=== PATIENT | male | born 1990 | race Two or more races ===

== ENCOUNTER 2023-02-06 07:08 | Emergency (ER) | payer BC ==
[2023-02-06] MEDS ORDERED: Sodium Chloride 0.9% 10 ML Syringe FLUSH PRN (07:26)
[2023-02-06] MEDS ORDERED: Sodium Chloride 0.9% 2.5 ML Syringe FLUSH PRN (07:26)
[2023-02-06] MEDS ORDERED: Ketorolac 30 MG/ML SDV IVPUSH ONE (07:26)
[2023-02-06] MEDS ORDERED: Albuterol/Ipratropium 3.0-0.5 MG/3 ML Neb Soln NEB ONE (07:51)
[2023-02-06 07:54] LABS: BASOPHILS PERCENT AUTO 0.5 % (0.0-1.5); EOSINOPHILS ABSOLUTE AUTO 0.1 K/uL (0.0-0.7); EOSINOPHILS PERCENT AUTO 1.5 % (0.0-7.0); HEMATOCRIT 43.6 % (38.0-50.0); LYMPHOCYTES ABSOLUTE AUTO 1.9 K/uL (0.6-2.4); LYMPHOCYTES PERCENT AUTO 25.5 % (16.0-40.0); MEAN CORPUSCULAR HEMOGLOBIN 29.7 pg (27.0-32.0); MEAN CORPUSCULAR HGB CONC 32.1 g/dL (31.0-37.0); MEAN CORPUSCULAR VOLUME 92.6 fL (80.0-98.0); MONOCYTES ABSOLUTE AUTO 0.8 K/uL (0.0-0.8); MONOCYTES PERCENT AUTO 10.3 % (0.0-15.0); NEUTROPHILS ABSOLUTE AUTO 4.6 K/uL (1.4-5.7); NEUTROPHILS PERCENT AUTO 62.2 % (48.0-80.0); NRBC ABSOLUTE 0 K/uL; PLATELET COUNT,PLT 236 K/uL (150-400); RED BLOOD CELL COUNT 4.71 M/uL (4.50-5.90); WHITE BLOOD CELL COUNT,WBC 7.45 K/uL (4.0-11.0)
[2023-02-06 08:18] LABS: A/G RATIO 0.9 (0.9-1.6); ALANINE AMINOTRANSFERASE,ALT 47 IU/L (14-63); ALBUMIN 3.3 g/dL (3.4-5.0); ALKALINE PHOSPHATASE 102 U/L (46-116); ASPARTATE AMNIOTRANSFERASE,AST 28 IU/L (15-37); BILIRUBIN TOTAL 0.3 mg/dL (0.2-1.0); BLOOD UREA NITROGEN,BUN 18 mg/dL (7.0-18.0); CALCIUM 8.3 mg/dL (8.5-10.1); CARBON DIOXIDE,CO2 25.2 mmol/L (21.0-32.0); CHLORIDE,CL 107 mmol/L (98-107); CREATININE 0.7 mg/dL (0.8-1.3); GLUCOSE RANDOM 100 mg/dL (74-106); POTASSIUM,K 4.7 mmol/L (3.5-5.1); PROTEIN TOTAL,TP 7.1 g/dL (6.4-8.2); SODIUM,NA 141 mmol/L (136-148)
[2023-02-06 08:20] LABS: ESTIMATED GFR 126 mL/min (>60)
[2023-02-06] MEDS ORDERED: Lidocaine 4% 1 each Patch TOP SCH (09:00)
[2023-02-06] MEDS ORDERED: Iopamidol 755 MG/ML 500 ML Multipack Bottle IVPUSH STA (09:36)
== END 2023-02-06 11:28 | disposition home or self-care (01) ==
LOC: MW.ED 07:08
DX: G47.33 Obstructive sleep apnea (adult) (pediatric) (principal); M25.562 Pain in left knee; R06.02 Shortness of breath; F17.200 Nicotine dependence, unspecified, uncomplicated
CPT/HCPCS: 36415; 71275; 73562; 80053; 83880; 84484; 85025; 85379; 93005; 96374; 99284; A9270; J1885; J3490; Q9967; J7620-GY